=== PATIENT | male | born 1985 | race American Indian/Alaskan Native ===

== ENCOUNTER 2017-10-09 07:27 | Emergency (ER) | payer OTHER ==
[2017-10-09 07:33] VITALS: BP 129/71
--- NOTE | 2017-10-09 08:04 | Emergency Department Report ---
Eye Injury/Foreign Body - HPI Duration: 1 month Eye Location: Left Severity: Mild (2/10) Tetanus Status: Up to Date Eye Symptoms: Eye Pain: No (aft eyelid), Blurred Vision: No, Eye Redness: Yes ( left eyelid), Grinding/Hammering Metal: No, Used Eye Protection: Yes, Contact Lens Use: No, Recalls Injury: No, Photophobia: No Other History: Patient reports that he has a stye for 1 month as been getting worse. He has not been taking any medication. He reports pain 2/10. Denies any change in vision. Denies any pain in his eye. Denies foreign body sensation in eyes. Tetanus vaccine is up-to-date. Pain is worse with touch. ED Review of Systems ROS: Stated complaint: LUMP ON LEFT EYE Other details as noted in HPI Comment: All other systems reviewed and negative Constitutional: no symptoms reported Eyes: other (eyelid pain). denies: eye pain, eye discharge, vision change ENT: denies: throat pain, congestion Respiratory: no symptoms reported Cardiovascular: denies: chest pain, palpitations, dyspnea on exertion, edema, syncope, paroxysmal nocturnal dyspnea Gastrointestinal: denies: nausea, vomiting Skin: rash (stye left eyelid) Neurological: denies: headache ED Past Medical Hx - Past Medical History Previous Medical History?: Yes Additional medical history: Bodyaches - Surgical History Past Surgical History?: No - Family History Family history: no significant - Social History Smoking Status: Current Every Day Smoker Substance Use Type: Alcohol, Marijuana, Non Opiate Pain - Medications Home Medications: Home Medications Medication Instructions Recorded Confirmed Last Taken Type Gentamicin 0.3% Ophth Oint 1 applicatio OP Q8H 7 Days #1 tube 10/09/17 Unknown Rx Eye Injury Exam - Exam General: Vital signs noted. No distress. Alert and acting appropriately. This is a 32-year-old male well-nourished well-developed in no acute distress. - Visual Acuity Left Vision Acuity Degree: 20/25 Eye Exam: Both EOMI, Neither Injection, Neither Chemosis, Neither Abnormal Pupil , Neither Eye Foreign Body, Neither Lid Foreign Body (stye to left eyelid), Neither Mucous Discharge, Neither Purulent Discharge, Neither Corneal Edema, Neither Photophobia Exam: Patient with injury to the area to mid left upper eyelid. Mild erythema and tender to palpate. Nonfluctuant. No drainage noted. Right Vision Acuity Degree: 20/30 Eye Exam: Both EOMI, Neither Injection, Neither Chemosis, Neither Abnormal Pupil , Neither Eye Foreign Body, Neither Lid Foreign Body, Neither Mucous Discharge, Neither Purulent Discharge, Neither Corneal Edema, Neither Photophobia Exam: Normal exam Bilateral Vision Acuity Degree: 20/25 Eye Exam: Both EOMI ED Course Vital Signs 10/09/17 07:30 Temperature 98.6 F Pulse Rate 60 Respiratory 18 Rate Blood Pressure 129/71 O2 Sat by Pulse 99 Oximetry - Reevaluation(s) Reevaluation #1: 10/09/17 08:11 Patient is stable throughout ED course ED Medical Decision Making - Medical Decision Making ED course: Patient with left upper lid sty. Indurated without fluctuance. No drainage. Bilateral eye exam normal except for slight left eyelid. Patient educated and sty in treatment plan. He voices understanding. Discharged home in stable condition to follow up with extension associate if sty does not get better and/or primary care in 3-5 days. Discharged home a prescription for gentamicin ophthalmic and apply warm compresses to affected area 3 times a day. Critical care attestation.: If time is entered above; I have spent that time in minutes in the direct care of this critically ill patient, excluding procedure time. ED Disposition Clinical Impression: Pain of left eyelid Stsai external Qualifiers: Laterality: left Eyelid: upper Qualified Code(s): H00.014 - Hordeolum externum left upper eyelid Disposition: DC-01 TO HOME OR SELFCARE Is pt being admited?: No Does the pt Need Aspirin: No Condition: Stable Instructions: Komal (ED) Additional Instructions: Apply warm compresses to left upper lid 3 times a day. After each warm compresses apply gentamycin ophthalmic ointment. Follow up with primary care in 3 days. Prescriptions: Gentamicin 0.3% Ophth Oint 1 applicatio OP Q8H 7 Days #1 tube Referrals: PRIMARY CARE, [Primary Care Provider] - 3-5 Days Forms: Work/School Release Form(ED)
== END 2017-10-09 08:37 | disposition home or self-care (01) ==
LOC: ED 07:27
DX: H00.014 Hordeolum externum left upper eyelid (principal); F17.200 Nicotine dependence, unspecified, uncomplicated; F12.10 Cannabis abuse, uncomplicated
CPT/HCPCS: 99282